=== PATIENT | female | born 1975 | race Caucasian/White ===

== ENCOUNTER → 2020-10-27 | Outpatient (CLI) | payer BC | LOC: RAD 10:30 | DX: R07.89 Other chest pain (principal) ==

== ENCOUNTER → 2020-11-08 | Outpatient (CLI) | payer BC | LOC: MAMMO 08:30 | DX: Z12.31 Encounter for screening mammogram for malignant neoplasm of breast (principal); Z01.419 Encounter for gynecological examination (general) (routine) without abnormal findings ==